=== PATIENT | female | born 1985 | race Two or more races ===

== ENCOUNTER 2020-10-17 11:04 | Outpatient (CLI) | payer OTHER ==
[~2020-10-17 11:04] MED LIST: IRON PO; PRENATAL TABLE1 EACH PO
== END 2020-10-17 11:55 | disposition home or self-care (01) ==
LOC: NST 11:04
PROVIDERS: ATTEND Obstetrics & Gynecology
DX: Z34.83 Encounter for supervision of other normal pregnancy, third trimester (principal)

== ENCOUNTER 2020-12-14 09:08 | Inpatient (IN) | payer OTHER ==
[~2020-12-14] VITALS: Ht 154.9 cm; Wt 73.9 kg
[2020-12-15] MEDS ORDERED: IRON18 MG PO (09:30)
== END 2020-12-17 15:47 | disposition home or self-care (01) | DRG 788 ==
LOC: SURG-SUITE 09:08 → LDR 09:08 → EDBD 09:08 → O/R 12:40 → SURG-SUITE 13:58
PROVIDERS: Obstetrics & Gynecology; ADMIT Obstetrics & Gynecology; ATTEND Obstetrics & Gynecology
PROC: 4A1HXFZ Monitoring of Products of Conception, Cardiac Rhythm, External Approach (ICD-10-PCS; 2020-12-14)
PROC: 10D00Z1 Extraction of Products of Conception, Low, Open Approach (ICD-10-PCS; principal; 2020-12-14 10:00)
DX: O34.211 Maternal care for low transverse scar from previous cesarean delivery (principal); Z3A.38 38 weeks gestation of pregnancy; Z37.0 Single live birth

== ENCOUNTER 2023-01-29 15:36 | Emergency (ER) | payer OTHER ==
[~2023-01-29] VITALS: Ht 154.9 cm; Wt 61.2 kg
[~2023-01-29 15:36] MED LIST changes: +IRON18 MG PO
[2023-01-29 19:08] LABS: CALCIUM 9.1 mg/dL (8.5-10.1); CREATININE SERUM 0.85 mg/dL (0.55-1.02); GFR 75.68; POTASSIUM 3.52 mEq/L (3.5-5.1)
[2023-01-29 19:24] LABS: HEMATOCRIT 39.2 % (36.0-45.00); HEMOGLOBIN 12.7 g/dL (12.0-15.00); MEAN CELL VOLUME 89.9 fL (80.00-100.00); MEAN CORPUSCULAR HEMOGLOBIN 29.1 pg (27.00-32.0); MEAN CORPUSCULAR HGB CONC 32.4 g/dl (32.0-36.0); PLATELET COUNT 378 K/uL (150-450); RED BLOOD COUNT 4.37 M/uL (4.00-6.00); RED CELL DISTRIBUTION WIDTH 14.1 % (11.5-14.5)
== END 2023-01-29 21:20 | disposition home or self-care (01) ==
LOC: ER 15:36
PROVIDERS: General Practice
DX: S05.8X2A Other injuries of left eye and orbit, initial encounter (principal); X58.XXXA Exposure to other specified factors, initial encounter; Y93.9 Activity, unspecified; Y92.9 Unspecified place or not applicable; Y99.9 Unspecified external cause status; F41.0 Panic disorder [episodic paroxysmal anxiety]; Z91.013 Allergy to seafood